=== PATIENT | male | born 1990 | race Caucasian/White ===

== ENCOUNTER 2022-06-11 09:42 | Emergency (ER) | payer BC ==
[~2022-06-11] VITALS: Ht 182.9 cm; Wt 86.2 kg
[2022-06-11 09:52] VITALS: BP 137/98
[2022-06-11] MEDS ORDERED: LIDOCAINE HCL/PF 1% 30 ML SDV ONE (10:19)
--- NOTE | 2022-06-11 11:18 | NUR ---
Patient discharged to home in stable condition. Written and verbal after care instructions given. Patient verbalizes understanding of instruction.
== END 2022-06-11 11:18 | disposition home or self-care (01) ==
LOC: ER 10:01
DX: M79.5 Residual foreign body in soft tissue (principal)
CPT/HCPCS: 64450; 99284; J3490